=== PATIENT | female | born 1945 | race Caucasian/White ===

== ENCOUNTER 2022-07-14 12:27 | Emergency (ER) | payer OTHER ==
--- OUTSIDE RECORDS SUMMARY | 2022-07-14 12:31 | XMS REPORT | Continuity of Care Document ---
:1945 Author Organization [facility] t Address [address] [place] [address] Care Team Providers Name Role Phone PHYSICIAN, OUTSIDE Primary Care Physician Unavailable DENICE GRANADOS Attending Clinician Unavailable ROMÁN BOWLES Attending Clinician Unavailable Denice Granados MD Attending Clinician Doctor Unassigned, [place] Attending Clinician Unavailable Román Bowles MD Attending Clinician RADIOLOGY Attending Clinician Unavailable Radiology Attending Clinician Unavailable Only, Adc Test Attending Clinician Unavailable Vahid Mclain MD Attending Clinician VAHID MCLAIN Attending Clinician Unavailable Sherrie Plaza RN Attending Clinician Unavailable SHERLY CHAPMAN Attending Clinician Unavailable CIARA CHAPIN Attending Clinician Unavailable Pob, Adc Lab Main Attending Clinician Unavailable Meredith Kaur MD Attending Clinician PRATEEK BURR Attending Clinician Unavailable Darrius Boyer MD Attending Clinician [place] Admitting Clinician Unavailable Payers Payer Name Policy Type Policy Number Effective Date Expiration Date Lanie blount QUETA/[facility] MED [id number] 2021 ADVANTAGE CHOICE 00:00:00 PPO [facility] MEDICARE [id number] 2018 ADVANTAGE 00:00:00 Problems Condition Condition Condition Status Onset Resolution Last Treating Co mments Source Name Details Category Date Date Treatment Clinician Date No known No known Disease Unive rs active active ity of problems problems [place] [facility] Allergies, Adverse Reactions, Alerts Allergy Allergy Status Severity Reaction(s) Onset Inactive Treating Comm ents Source Name Type Date Date Clinician Iodine Propensi Active Hives Univers And ty to 8-08 ity of Iodide adverse 00:00: [place] Containi reaction 00 Medica l ng s Branch Products IODINE Drug Active Hives Univers AND Class 8-08 ity of IODIDE 00:00: [place] CONTAINI 00 Medical NG Branch PRODUCTS Family History Family Member Diagnosis Comments Start Date Stop Date Source Natural father [facility] Natural mother [facility] Social History Social Habit Start Date Stop Date Quantity Comments Source History SDOH [facility] History SDOH [facility] Drinks Exposure to 2022-07-02 2022-07-12 Not sure University of SARS-CoV-2 00:00:00 09:05:00 [place] [facility] (event) [facility] Tobacco use and 2021-02-16 2021-02-16 Smokeless tobacco Me [facility]odist exposure 00:00:00 00:00:00 non-user Hospital Alcohol intake 2021-02-16 2021-02-16 Lifetime [facility] 00:00:00 00:00:00 non-drinker Hospital (finding) History SDOH 2021-02-16 2021-02-16 1 [facility] Frequency 00:00:00 00:00:00 Hospita l Sex [birth year] [facility] 00:00:[facility]:00:00 Hospital Smoking Status Start Date Stop Date Source Tobacco smoking consumption [facility] unknown Branch Never smoked tobacco [facility] Medications Ordered Filled Start Stop Current Ordering Indication Dosage Frequency Signature Comments Components Source Medication Medication Date Date Medication? Clinician (SIG) Name Name metoprolol Yes 25mg Take 25 mg U nivers succinate 1-10 by mouth ity of XL 25 mg 24 09[place] 43 morning. Med[place] Branch metoprolol Yes 25mg Take 25 mg U nivers succinate 1-10 by mouth ity of XL 25 mg 24 09:20[place] 43 morning. [place] Branch pravastatin Yes 40mg QD Take 40 mg [facility] (PRAVACHOL) 8-[address] 40 mg 10:55: daily. Hospita tablet 49 l MAGNESIUM 202-0 Yes 625mg QD Take 625 Met [facility] CITRATE 8-[address] ORAL 10:54: mouth Hospita 09 daily. l omega-3 202-0 Yes Take by [facility] fatty 8-[address] acids/fish 10:54: Fish oil- Ho spita oil (FISH 09 1,000 mg, l OIL OMEGA omega 3-6-9 ORAL) 3-300 mg zinc 50 mg 2020-0 Yes 1{tbl} QD Take 1 Met [facility] tablet 8-[address] 10:54: mouth Hospita 09 daily. l ascorbic 202-0 Yes 1000mg QD Take 1,000 M ethodi acid, 8-[address] vitamin C, 10:54: mouth Hospit a (vitamin C) 09 daily. l 1000 MG tablet calcium 2020-0 Yes Take by [facility] carbonate 8-[address] (CALCIUM 10:50: Hospita 600 ORAL) 48 l cholecalcif 2020-0 Yes 3250U QD Take 3,250 [facility] loren, 8-17 Units by vitamin D3, 10:50: mouth Hospi ta (Vitamin 48 daily. l D3) 25 mcg (1,000 unit) capsule diclofenac Yes [id number] 75mg Take 1 U nivers 75 mg EC 8-08 tablet by ity of tablet 00:00: mouth (two) Medical times Branch daily with meals. diclofenac Yes [id number] 75mg Take 1 U nivers 75 mg EC 8-08 tablet by ity of tablet 00:00: mouth (two) Medical times Branch daily with meals. diclofenac 0 Yes [id number] 75mg Take 1 U nivers 75 mg EC 8-08 tablet by ity of tablet 00:00: mouth (two) Medical times Branch daily with meals. diclofenac 2018-0 Yes [id number] 75mg Take 1 U nivers 75 mg EC 8-08 tablet by ity of tablet 00:00: mouth (two) Medical times Branch daily with meals. diclofenac 2019-0 Yes [id number] 75mg Take 1 U nivers 75 mg EC 8-08 tablet by ity of tablet 00:00: mouth (two) Medical times Branch daily with meals. diclofenac 2019-0 Yes [id number] 75mg Take 1 U nivers 75 mg EC 8-08 tablet by ity of tablet 00:00: mouth (two) Medical times Branch daily with meals. diclofenac 2019-0 Yes [id number] 75mg Take 1 U nivers 75 mg EC 8-08 tablet by ity of tablet 00:00: mouth (two) Medical times Branch daily with meals. diclofenac 2019-0 Yes [id number] 75mg Take 1 U nivers 75 mg EC 8-08 tablet by ity of tablet 00:00: mouth (two) Medical times Branch daily with meals. diclofenac 2019-0 Yes [id number] 75mg Take 1 U nivers 75 mg EC 8-08 tablet by ity of tablet 00:00: mouth (two) Medical times Branch daily with meals. diclofenac 2019-0 Yes [id number] 75mg Take 1 U nivers 75 mg EC 8-08 tablet by ity of tablet 00:00: mouth (two) Medical times Branch daily with meals. diclofenac 2019-0 Yes [id number] 75mg Take 1 U nivers 75 mg EC 8-08 tablet by ity of tablet 00:00: mouth (two) Medical times Branch daily with meals. diclofenac 2019-0 Yes [id number] 75mg Take 1 U nivers 75 mg EC 8-08 tablet by ity of tablet 00:00: mouth [place] (two) Medical times Branch daily with meals. diclofenac 2019-0 Yes [id number] 75mg Take 1 U nivers 75 mg EC 8-08 tablet by ity of tablet 00:00: mouth [place] (two) Medical times Branch daily with meals. diclofenac 2019-0 Yes [id number] 75mg Take 1 U nivers 75 mg EC 8-08 tablet by ity of tablet 00:00: mouth (two) Medical times Branch daily with meals. diclofenac 2019-0 Yes [id number] 75mg Take 1 U nivers 75 mg EC 8-08 tablet by ity of tablet 00:00: mouth [place] (two) Medical times Branch daily with meals. diclofenac 2019-0 Yes [id number] 75mg Take 1 U nivers 75 mg EC 8-08 tablet by ity of tablet 00:00: mouth [place] (two) Medical times Branch daily with meals. diclofenac 2019-0 Yes [id number] 75mg Take 1 U nivers 75 mg EC 8-08 tablet by ity of tablet 00:00: mouth 2 [place] (two) Medical times Branch daily with meals. diclofenac 2019-0 Yes [id number] 75mg Take 1 U nivers 75 mg EC 8-08 tablet by ity of tablet 00:00: mouth 2 [place] (two) Medical times Branch daily with meals. diclofenac 2019-0 Yes [id number] 75mg Take 1 U nivers 75 mg EC 8-08 tablet by ity of tablet 00:00: mouth 2 [place] (two) Medical times Branch daily with meals. diclofenac 2019-0 Yes [id number] 75mg Take 1 U nivers 75 mg EC 8-08 tablet by ity of tablet 00:00: mouth 2 [place] (two) Medical times Branch daily with meals. diclofenac 2019-0 Yes [id number] 75mg Take 1 U nivers 75 mg EC 8-08 tablet by ity of tablet 00:00: mouth 2 [place] (two) Medical times Branch daily with meals. pravastatin 2019-0 Yes Univer s 40 mg 5-19 ity of tablet 00:00: [address] pravastatin 2019-0 Yes Univer s 40 mg 5-19 ity of tablet 00:00: [address] pravastatin 2019-0 Yes Univer s 40 mg 5-19 ity of tablet 00:00: [address] pravastatin 2019-0 Yes Univer s 40 mg 5-19 ity of tablet 00:00: [address] pravastatin 2019-0 Yes Univer s 40 mg 5-19 ity of tablet 00:00: [address] pravastatin 2019-0 Yes Univer s 40 mg 5-19 ity of tablet 00:00: [address] pravastatin 2019-0 Yes Univer s 40 mg 5-19 ity of tablet 00:00: [address] pravastatin 2019-0 Yes Univer s 40 mg 5-19 ity of tablet 00:00: [address] pravastatin 2019-0 Yes Univer s 40 mg 5-19 ity of tablet 00:00: [address] pravastatin 2019-0 Yes Univer s 40 mg 5-19 ity of tablet 00:00: [address] pravastatin 2019-0 Yes Univer s 40 mg 5-19 ity of tablet 00:00: [place] 00 [facility] pravastatin 2019-0 Yes Univer s 40 mg 5-19 ity of tablet 00:00: [place] [address] Medical Branch pravastatin 2019-0 Yes Univer s 40 mg 5-19 ity of tablet 00:00: [place] [address] Medical Branch pravastatin 2019-0 Yes Univer s 40 mg 5-19 ity of tablet 00:00: [place] [address] Medical Branch pravastatin 2019-0 Yes Univer s 40 mg 5-19 ity of tablet 00:00: [place] [address] Medical Branch pravastatin 2019-0 Yes Univer s 40 mg 5-19 ity of tablet 00:00: [place] [address] Medical Branch pravastatin 2019-0 Yes Univer s 40 mg 5-19 ity of tablet 00:00: [place] [address] Medical Branch pravastatin 2019-0 Yes Univer s 40 mg 5-19 ity of tablet 00:00: [place] [address] Medical Branch pravastatin 2019-0 Yes Univer s 40 mg 5-19 ity of tablet 00:00: [address] Branch pravastatin 2019-0 Yes Univer s 40 mg 5-19 ity of tablet 00:00: [address] Branch pravastatin 2019-0 Yes Univer s 40 mg 5-19 ity of tablet 00:00: [address] Branch Immunizations Ordered Filled Immunization Date Status Comments [facility] e Immunization Name Name SARS-COV-2 COVID-19 2020-08-08 Completed Unive rsity of MODERNA 12+ YRS 00:00:00 [facility] VACCINE Branch SARS-COV-2 COVID-19 2020-08-08 Completed Unive rsity of MODERNA 12+ YRS 00:00:00 [facility] ical VACCINE Branch SARS-COV-2 COVID-19 2020-08-08 Completed Unive rsity of MODERNA 12+ YRS 00:00:00 [facility] ical VACCINE Branch SARS-COV-2 COVID-19 2020-08-08 Completed Unive rsity of MODERNA 12+ YRS 00:00:00 [facility] ical VACCINE Branch SARS-COV-2 COVID-19 2020-08-08 Completed Unive rsity of MODERNA 12+ YRS 00:00:00 [facility] [place] [facility] VACCINE Branch SARS-COV-2 COVID-19 2020-08-08 Completed Unive rsity of MODERNA 12+ YRS 00:00:00 [place] [facility] ical VACCINE Branch SARS-COV-2 COVID-19 2020-08-08 Completed Unive rsity of MODERNA 12+ YRS 00:00:00 [place] [facility] ical VACCINE Branch SARS-COV-2 COVID-19 2020-08-08 Completed Unive rsity of MODERNA 12+ YRS 00:00:00 [place] [facility] ical VACCINE Branch SARS-COV-2 COVID-19 2020-08-08 Completed Unive rsity of MODERNA VACCINE 00:00:00 [place] Med ical Branch SARS-COV-2 COVID-19 2020-08-08 Completed Unive rsity of MODERNA VACCINE 00:00:00 [place] [facility] ical Branch SARS-COV-2 COVID-19 2020-08-08 Completed Unive rsity of MODERNA VACCINE 00:00:00 [place] [facility] ical Branch SARS-COV-2 COVID-19 2020-07-11 Completed Unive rsity of MODERNA 12+ YRS 00:00:00 [place] [facility] ical VACCINE Branch SARS-COV-2 COVID-19 2020-07-11 Completed Unive rsity of MODERNA 12+ YRS 00:00:00 [place] [facility] ical VACCINE Branch SARS-COV-2 COVID-19 2020-07-11 Completed Unive rsity of MODERNA 12+ YRS 00:00:00 [place] [facility] ical VACCINE Branch SARS-COV-2 COVID-19 2020-07-11 Completed Unive rsity of MODERNA 12+ YRS 00:00:00 [place] [facility] ical VACCINE Branch SARS-COV-2 COVID-19 2020-07-11 Completed Unive rsity of MODERNA 12+ YRS 00:00:00 [place] [facility] ical VACCINE Branch SARS-COV-2 COVID-19 2020-07-11 Completed Unive rsity of MODERNA 12+ YRS 00:00:00 [place] [facility] ical VACCINE Branch SARS-COV-2 COVID-19 2020-07-11 Completed Unive rsity of MODERNA 12+ YRS 00:00:00 [place] [facility] ical VACCINE Branch SARS-COV-2 COVID-19 2020-07-11 Completed Unive rsity of MODERNA 12+ YRS 00:00:00 [place] [facility] ical VACCINE Branch SARS-COV-2 COVID-19 2020-07-11 Completed Unive rsity of MODERNA VACCINE 00:00:00 [place] [facility] ical Branch SARS-COV-2 COVID-19 2020-07-11 Completed Unive rsity of MODERNA VACCINE 00:00:00 [facility] Branch SARS-COV-2 COVID-19 2020-07-11 Completed Unive rsity of MODERNA VACCINE 00:00:00 [facility] Vital Signs Vital Name Observation Time Observation Value Comments Source Systolic blood 2022-07-12 15:28:00 139 mm[Hg] Univer sity of pressure [place] [facility] Diastolic blood 2022-07-12 15:28:00 66 mm[Hg] Unive rsity of pressure [facility] Branch Heart rate 2022-07-12 15:28:00 53 /min [facility] ty [facility] [place] [facility] Body temperature 2022-07-12 15:28:00 36.22 Nimo Univ ersity of [facility] Branch Body height 2022-07-12 15:28:00 172.7 cm Universi ty of [place] [facility] [place] Body weight 2022-07-12 15:28:00 58.423 kg Universi ty of [place] [facility] BMI 2022-07-12 15:28:00 19.58 kg/m2 [facility]i ty [facility] [place] [facility] Oxygen saturation in 2022-07-12 15:28:00 98 /min University of Arterial blood by [place] [facility] merlyn Pulse oximetry Branch Systolic blood 2022-04-29 14:00:00 133 mm[Hg] Univer sity of pressure [facility] Diastolic blood 2022-04-29 14:00:00 76 mm[Hg] Unive rsity of pressure [facility] Heart rate 2022-04-29 14:00:00 52 /min Universi ty of [place] [facility] Body weight 2022-04-29 14:00:00 58.287 kg Universi ty of [place] [facility] BMI 2022-04-29 14:00:00 19.54 kg/m2 Universi ty of [place] [facility] Oxygen saturation in 2022-04-29 14:00:00 97 /min University of Arterial blood by [facility] merlyn Pulse oximetry Branch Systolic blood 2019-03-20 20:31:00 120 mm[Hg] Univer sity of pressure [facility] Diastolic blood 2019-03-20 20:31:00 65 mm[Hg] Unive rsity of pressure [facility] Body height 2019-03-20 20:31:00 172.7 cm Universi ty of [place] [facility] Body weight 2019-03-20 20:31:00 56.7 kg Universi ty of [place] [facility] BMI 2019-03-20 20:31:00 19.01 kg/m2 [facility] [place] [facility] Systolic blood 2019-03-20 20:31:00 120 mm[Hg] Univer sity of pressure [facility] Diastolic blood 2019-03-20 20:31:00 65 mm[Hg] Unive rsity of [facility] Medical Branch Body height 2019-03-20 20:31:00 172.7 cm Universi ty of [place] [facility] Body weight 2019-03-20 20:31:00 56.7 kg Universi ty of [place] [facility] BMI 2019-03-20 20:31:00 19.01 kg/m2 Universi ty of [place] [facility] Body height 2019-02-07 13:00:00 172.7 cm Universi ty of [place] [facility] Body weight 2019-02-07 13:00:00 56.7 kg Universi ty of [place] [facility] BMI 2019-02-07 13:00:00 19.01 kg/m2 [facility] [place] [facility] Systolic blood 2019-02-07 13:00:00 122 mm[Hg] Univer sity of [facility] Medical Branch Diastolic blood 2019-02-07 13:00:00 65 mm[Hg] Unive rsity of [facility] Procedures Procedure Date / Time Performed Performing Clinician Sour e EXTERNAL PROVIDER - 2022-05-31 06:01:00 Doctor Unassigned, No Un iversity [facility] CARDIOLOGY Name Medical Branch CORTISOL, P.M.-Q 2022-05-02 21:12:00 Román Bowles [facility] DEXA AXIAL (HIP AND 2022-04-04 13:30:55 [facility] SPINE) Medical Branch CONSENT/REFUSAL FOR 2022-04-04 12:48:22 Doctor Unassigned, [facility] AND Name Medical Branch TREATMENT ASSIGNMENT OF BENEFITS 2022-04-04 12:48:01 Doctor Unassigned, No [facility] Medical Branch ASSIGNMENT OF BENEFITS 2021-03-30 18:32:59 Doctor Unassigned, No [facility] Branch ASSIGNMENT OF BENEFITS 2020-03-03 20:31:11 Doctor Unassigned, No [facility] ASSIGNMENT OF BENEFITS 2019-03-20 21:02:10 Doctor Unassigned, No [facility] Plan of Care Planned Activity Planned Date Details Comments Source Future Scheduled 2022-06-15 Hepatitis C screening [facility] Test 23:35:50 (procedure) [code = 785530872] Future Scheduled 2022-06-15 COLONOSCOPY SCREENING [facility] Test 23:35:50 [code = COLONOSCOPY SCREENING] Future Scheduled 2022-06-15 SHINGLES VACCINES (1 Met [facility] Test 23:35:50 of 2) [code = SHINGLES VACCINES (1 of 2)] Future Scheduled 2022-06-15 65+ PNEUMOCOCCAL [facility] Test 23:35:50 VACCINE (1 - PCV) [code = 65+ PNEUMOCOCCAL VACCINE (1 - PCV)] Future Scheduled 2022-06-15 COVID-19 VACCINE (3 - [facility] Test 23:35:50 Booster for Moderna series) [code = COVID-19 VACCINE (3 - Booster for Moderna series)] Future Scheduled 2022-06-15 INFLUENZA VACCINE [facility] Test 23:35:50 [code = INFLUENZA VACCINE] Encounters Start End Encounter Admission Attending Care Care Encounter Source Date/Time Date/Time Type Type Clinicians Facility Department ID 2023-05-05 2023-05-05 Outpatient R WILBUR [facility] [id number] Univers 09:30:00 09:30:00 ROMÁN fountain [facility] 2022-07-12 2022-07-12 Outpatient R DARWIN [facility] [id number] Univers 09:30:00 09:55:36 DENICE fountain [facility] 2022-07-12 2022-07-12 Office Darwin IACAREN [id number] Univers 09:30:00 09:55:36 Visit Denice [facility] 4.2.7.2.686 Bettye SANDRA [phone] Mo dical NAL 059 [facility] 2022-05-31 2022-05-31 Orders Doctor PATRICIO 1.2.840.114 [id number] Univers 00:00:00 00:00:00 Only Unassigned, PAVEL 350.1.13.10 ity of [place] [facility] 4.2.7.2.686 Josh as [id number] [address] 2022-05-03 2022-05-03 Telephone [facility] 1.2.840.114 [id number] Univers 00:00:00 00:00:00 Román Lechuga HEALTH 350.1.13.10 it y of [place] 4.2.7.2.686 Josh as SIDRA?BLEA [id number] [address] MEDICAL OFFICE [facility] 2022-05-02 2022-05-02 Orders SINTIA Bowles [id number] Univers 00:00:00 00:00:00 Only Román ZHAO 350.1.13.10 it y of [facility] 4.2.7.2.686 Josh as [id number] [address] 2022-04-29 2022-04-29 [facility] [id number] Univers 09:00:00 10:15:02 ROMÁN ity of [facility] 2022-04-29 2022-04-29 Office [facility] [id number] Univers 09:00:00 10:15:02 Visit Román Lechuga HEALTH 350.1.13.10 it y of [place] 4.2.7.2.686 Josh as SIDRA?BLEA [id number] [address] MEDICAL OFFICE [facility] 2022-04-04 2022-04-04 Outpatient R RADIOLOGY [facility] [id number] Univers 07:47:43 23:59:00 ity of [facility] 2022-04-04 2022-04-04 Hospital Radiology [facility] 1.2.840.114 [id number] Univers 07:47:43 23:59:00 Encounter [place] 350.1.13.10 ity of [place]7.[place] [id number] [address] 2021-09-20 2021-09-20 Travel 1.2.840.1 [id number] Methodi 00:00:00 00:00:[address] 3.430.2.7 0.2.7.3.698 Ho spita .[id number] 084.8 l .8 2021-03-30 2021-03-30 Laboratory Only, Adc Test [facility] 1.2.840. 114 [id number] Univers 13:36:50 13:51:50 Only Vahid Mclain 350.1.13.10 ity [facility] 4.2.7.2.686 [facility] [id number] [facility] 353 Branch 2021-03-30 2021-03-30 Outpatient Pato MCLAIN [facility] [id number] Univers 13:30:00 13:30:00 [facility] 2021-03-30 2021-03-30 Orders Doctor SINTIA 1.2.840.114 [id number] Univers 00:00:00 00:00:00 Only Unassigned, PAVEL 350.1.13.10 ity of [place] [facility] 4.2.7.2.686 Josh as [id number] [facility] 009 Branch 2021-03-30 2021-03-30 Telephone [place]rie Plaza 1.2.840.114 [id number] Univers 00:00:00 00:00:00 PAVEL 350.1.13.10 it y of [facility] 4.2.7.2.686 Josh as [id number] [facility] 019 Branch 2021-02-16 2021-02-16 Outpatient [facility] [id number] [place] 00:00:00 00:00:[address] 2020-08-08 2020-08-08 Outpatient Pato CHAPIN [facility] [id number] Univers 09:40:00 09:40:00 CIARA ity [facility] 2020-07-11 2020-07-11 Outpatient Pato CHAPIN [facility] [id number] Univers 09:50:00 09:50:00 CIARA ity [facility] 2020-03-03 2020-03-03 Spray Mixer Alex, Adc Lab Main [facility] 1.2.8 40.114 [id number] Univers 15:33:47 15:48:47 Visit Meredith Kaur [place] 350.1.1 3.10 ity of [place].2.[place] [id number] Me dical nal [address] [place] [address] 2020-03-03 2020-03-03 Outpatient R [facility] [id number] Univers 15:30:00 15:30:00 ity [facility] 2020-03-03 2020-03-03 Orders Doctor SINTIA 1.2.840.114 [id number] Univers 00:00:00 00:00:00 Only Unassigned, PAVEL 350.1.13.10 ity of [place] [facility] 4.2.7.2.686 Josh as [id number] [address] 2019-12-27 2019-12-27 Outpatient MDA MDA [id number] 00:00:00 23:59:00 Bill o n 2019-12-27 2019-12-27 [id number] Univers 15:00:00 15:00:00 [facility] 2019-12-06 2019-12-06 [id number] Univers 08:30:00 08:30:[address] [facility] 2019-03-20 2019-03-20 Office [facility] [id number] 15:27:09 15:42:09 Visit [facility] 350.1.13.10 Surgical 4.2.7.2.686 Specialti [id number] es [address] [place] [address] 2019-03-20 2019-03-20 Office [facility] [id number] Univers 15:27:09 15:42:09 Visit [facility] 350.1.13.10 it y of Surgical 4.2.7.2.686 Josh as Specialti [phone] Me dical es [address] [facility] 2019-03-20 2019-03-20 Orders Doctor PATRICIO 1.2.840.114 [id number] 00:00:00 00:00:00 Only Unassigned, PAVEL 350.1.13.10 [facility] 4.2.7.2.686 [id number] 2019-03-20 2019-03-20 Orders Doctor SINTIA 1.2.840.114 [id number] [facility] 00:00:00 00:00:00 Only Unassigned, PAVEL 350.1.13.10 ity of [place] [facility] 4.2.7.2.686 Josh as [id number] [address] 2019-02-07 2019-02-07 [facility] 1.2.840.114 [id number] [facility] 08:06:49 23:59:00 Encounter [place] 350.1.13.10 ity of Surgical 4.2.7.2.686 Josh as Specialti [id number] Mo dical es 809 [facility] 2019-02-07 2019-02-07 Office [facility] [id number] [facility] 07:58:26 08:35:49 Visit [place] 350.1.13.10 it y of Surgical 4.2.7.2.686 Josh as Specialti [phone] Mo dical es 198 [facility] 2019-02-07 2019-02-07 Telephone [facility] 1.2.840.114 [id number] [facility] 00:00:00 00:00:00 [place] 350.1.13.10 it y of Surgical 4.2.7.2.686 Josh as Specialti [id number] Mo dical es 198 [facility] Results Test Description Test Time Test Comments Results Result Comments Source CORTISOL, P.M.-Q 2022-05-03 13:00:00 Test Item Value Reference Range Interpretation Comme nts CORTISOL, P.M.-Q (test mcg/dL Refer ence Range4 p.m. code = 9812-9) (3-5 p.m.) Sp ecimen: 3.0-17.0 CONCEPCIÓN (test code = CONCEPCIÓN) PERFORMED BY [facility] [place]; [address] [facility] [place] [address]; BLAYNE AREVALO MD [facility]
--- NOTE | 2022-07-14 13:44 | RAD REPORT ---
EXAM DESCRIPTION: RAD - Hip Right 2 View - 07/14/2022 1:30 pm CLINICAL HISTORY: PAIN COMPARISON: No comparisons FINDINGS: No acute fracture. No malalignment. No significant focal degenerative changes. IMPRESSION: No acute osseous abnormality involving the right hip.
--- NOTE | 2022-07-14 13:44 | RAD REPORT ---
EXAM DESCRIPTION: RAD - Pelvis - 07/14/2022 1:30 pm CLINICAL HISTORY: PAIN COMPARISON: TRANSVAGINAL STUDY PROBE dated 12/17/2014 FINDINGS/IMPRESSION: No acute fracture. No malalignment. No significant focal degenerative changes.
--- NOTE | 2022-07-14 14:31 | ER ---
Nurse's Notes [facility] Name: Grace Cabrera Age: 76 yrs Sex: Female : 1945 Arrival Date: 07/14/2022 Time: 12:29 Bed 12 Private MD: Catalina Reagan C Diagnosis: Pain in right hip Presentation: 07/14 12:33 Chief complaint: Patient states: "I was in the house and went to sit in the chair and mb9 stepped sideways to sit in it and felt a pain that shoot across in my right hip". Coronavirus screen: Vaccine status: Patient reports receiving the 2nd dose of the covid vaccine. Ebola Screen: No symptoms or risks identified at this time. Initial Sepsis Screen: Does the patient meet any 2 criteria? No. Patient's initial sepsis screen is negative. Does the patient have a suspected source of infection? No. Patient's initial sepsis screen is negative. Risk Assessment: Do you want to hurt yourself or someone else? Patient reports no desire to harm self or others. Onset of symptoms was July 14, 2022. 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 - Social history:: Smoking status: Patient denies any tobacco usage or history of. Screenin:53 [facility] ED Fall Risk Assessment (Adult) History of falling in the last 3 months, mb9 including since admission No falls in past 3 months (0 pts) Confusion or Disorientation No (0 pts) Intoxicated or Sedated No (0 pts) Impaired Gait Yes (1 pt) Mobility Assist Device Used No (0 pt) Altered Elimination No (0 pt) Score/Fall Risk Level 0 - 2 = Low Risk Oriented to surroundings, Maintained a safe environment, Educated pt \\T\\ family on fall prevention, incl call for assistance when getting out of bed. Abuse screen: Denies threats or abuse. Nutritional screening: No deficits noted. Tuberculosis screening: No symptoms or risk factors identified. Assessment: 12:51 General: Appears in no apparent distress. comfortable, Behavior is calm, cooperative, mb9 appropriate for age. Pain: Complains of pain in right hip Pain does not radiate. Pain currently is 8 out of 10 on a pain scale. Quality of pain is described as shooting, Pain began suddenly, Is intermittent, Aggravated by increased activity, repositioning, weight bearing. Neuro: Chavez Agitation-Sedation Scale (RASS): 0 - Alert and Calm Level of Consciousness is awake, alert, obeys commands, Oriented to person, place, time, situation, Appropriate for age. Cardiovascular: Capillary refill < 3 seconds is brisk Patient's skin is warm and dry. Respiratory: Airway is patent Respiratory effort is even, unlabored, Respiratory pattern is regular, symmetrical. GI: Abdomen is flat, non-distended. : No signs and/or symptoms were reported regarding the genitourinary system. EENT: No signs and/or symptoms were reported regarding the EENT system. Derm: Skin is pink, warm \\T\\ dry. Musculoskeletal: Range of motion: limited in right hip pt able to ambulate without assistance. 13:55 Reassessment: No changes from previously documented assessment. Patient and/or family mb9 updated on plan of care and expected duration. Pain level reassessed. Patient is alert, oriented x 3, equal unlabored respirations, skin warm/dry/pink. 14:43 Reassessment: No changes from previously documented assessment. Patient and/or family mb9 updated on plan of care and expected duration. Pain level reassessed. Patient is alert, oriented x 3, equal unlabored respirations, skin warm/dry/pink. Vital Signs: 12:33 BP 124 / 60; Pulse 61; Resp 16; Temp 98.6(O); Pulse Ox 100% ; Weight 58.06 kg (R); mb9 Height 5 ft. 8 in. (172.72 cm) (R); Pain 8/10; 14:43 BP 121 / 59; Pulse 62; Resp 14; Pulse Ox 100% on R/A; mb9 12:33 Body Mass Index 19.46 (58.06 kg, 172.72 cm) mb9 ED Course: 12:29 Patient arrived in ED. am2 12:30 Catalina Reagan MD is Private Physician. am2 12:35 Triage completed. mb9 12:37 Arm band placed on. mb9 12:38 Dorina Copeland, RN is Primary Nurse. mb9 12:40 Prisca Morocho FNP-C is [facility]. kb 12:40 Branden Sesay MD is Attending Physician. kb 12:53 Placed in gown. Bed in low position. Call light in reach. Side rails up X 1. Client mb9 placed on continuous cardiac and pulse oximetry monitoring. NIBP monitoring applied. Door closed. Noise minimized. Warm blanket given. 13:32 Hip Right 2 View XRAY In Process Unspecified. EDMS 13:32 Pelvis XRAY In Process Unspecified. EDMS 14:48 No provider procedures requiring assistance completed. Patient did not have IV access mb9 during this emergency room visit. Administered Medications: No medications were administered Medication: 12:53 VIS not applicable for this client. mb9 Outcome: 14:31 Discharge ordered by . kb 14:48 Discharged to home via wheelchair. mb9 14:48 Condition: stable 14:48 Discharge instructions given to patient, Instructed on discharge instructions, follow up and referral plans. Demonstrated understanding of instructions, follow-up care, medications, Prescriptions given X 2. 14:49 Patient left the ED. mb9 Signatures: Dispatcher [employer] EDMS Prisca Morocho FNP-C FNP-Armida Caraballo [facility] Dorina Copeland, RN RN mb9
--- NOTE | 2022-07-14 14:31 | EDPHYS ---
Physician Documentation [facility] Name: Grace Cabrera Age: 76 yrs Sex: Female : 1945 Arrival Date: 07/14/2022 Time: 12:29 Bed 12 Private MD: Catalina Reagan C ED Physician Branden Sesay HPI: 07/14 14:30 This 76 yrs old Female presents to ER via Wheelchair with complaints of Hip Pain. kb 14:30 The patient or guardian reports pain. that occurred at home, sustained from sitting kb down, There is no obvious deformity, The patient is able to self ambulate. The patient is able to bear their full body weight. The complaints affect the right hip. Onset: The symptoms/episode began/occurred just prior to arrival. Modifying factors: The symptoms are alleviated by nothing, the symptoms are aggravated by any movement. Associated signs and symptoms: Loss of consciousness: the patient experienced no loss of consciousness, Pertinent positives: None. Severity of symptoms: At their worst the symptoms were moderate, in the emergency department the symptoms are unchanged. The patient has not experienced similar symptoms in the past. The patient has not recently seen a physician. 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 - Social history:: Smoking status: Patient denies any tobacco usage or history of. ROS: 14:28 Constitutional: Negative for fever, chills, and weight loss. kb 14:28 MS/extremity: Positive for pain, of the right hip. 14:28 All other systems are negative. Exam: 14:28 Constitutional: This is a well developed, well nourished patient who is awake, alert, kb and in no acute distress. Head/Face: Normocephalic, atraumatic. ENT: Moist Mucous membranes Cardiovascular: Regular rate and rhythm with a normal S1 and S2. No gallops, murmurs, or rubs. No pulse deficits. Respiratory: Respirations even and unlabored. No increased work of breathing. Talking in full sentences Abdomen/GI: Soft, non-tender. No distention Skin: Warm, dry with normal turgor. Normal color. Neuro: Awake and alert, GCS 15, oriented to person, place, time, and situation. Moves all extremities. Normal gait. Psych: Awake, alert, with orientation to person, place and time. Behavior, mood, and affect are within normal limits. 14:28 Musculoskeletal/extremity: Extremities: grossly normal except: noted in the right hip: pain, ROM: intact in all extremities, Circulation is intact in all extremities. Sensation intact. Weight bearing: able to fully bear weight. Vital Signs: 12:33 BP 124 / 60; Pulse 61; Resp 16; Temp 98.6(O); Pulse Ox 100% ; Weight 58.06 kg (R); mb9 Height 5 ft. 8 in. (172.72 cm) (R); Pain 8/10; 14:43 BP 121 / 59; Pulse 62; Resp 14; Pulse Ox 100% on R/A; mb9 12:33 Body Mass Index 19.46 (58.06 kg, 172.72 cm) mb9 MDM: 12:40 Patient medically screened. kb 14:30 Differential diagnosis: hip fracture, intertrochanteric fracture, strain, sciatica. kb Data reviewed: vital signs, nurses notes. Test considered but Not performed: Other Details CT considered, but pt has had no injury and is ambulatory. Counseling: I had a detailed discussion with the patient and/or guardian regarding: the historical points, exam findings, and any diagnostic results supporting the discharge/admit diagnosis, radiology results, the need for outpatient follow up, a family practitioner, a orthopedic surgeon, to return to the emergency department if symptoms worsen or persist or if there are any questions or concerns that arise at home. 07/14 12:41 Order name: Hip Right 2 View XRAY; Complete Time: 13:48 kb 07/14 12:51 Order name: Pelvis XRAY; Complete Time: 13:48 kb Administered Medications: No medications were administered Disposition: 07/15 13:40 Co-signature as Attending Physician, Branden Sesay MD I agree with the assessment and dimple plan of care. Disposition Summary: 07/14/22 14:31 Discharge Ordered Location: Home kb Condition: Stable kb Diagnosis - Pain in right hip kb Followup: kb - With: Emergency Department - When: As needed - Reason: Worsening of condition Followup: kb - With: Private Physician - When: 2 - 3 days - Reason: Recheck today's complaints, Continuance of care, Re-evaluation by your physician Discharge Instructions: - Discharge Summary Sheet kb - Musculoskeletal Pain kb Forms: - Medication Reconciliation Form kb - Thank You Letter kb - Antibiotic Education kb - Prescription Opioid Use kb Prescriptions: - Diclofenac Sodium 75 mg Oral tablet,delayed release (DR/EC) - take 1 tablet by ORAL route 2 times per day As needed; 20 tablet; Refills: 0, kb Product Selection Permitted - orphenadrine citrate 100 mg Oral Tablet Sustained Release - take 1 tablet by ORAL route 2 times per day As needed; 20 tablet; Refills: 0, kb Product Selection Permitted Signatures: Dispatcher [employer] EDPrisca Jonas, RESEARCH PROGRAM INTERN-C RESEARCH PROGRAM INTERN-Branden Velarde MD MD cha Breneman, Mary Beth RN RN mb9
[2022-07-14 15:10] VITALS: TEMP 98.6; O2SAT 100
[2022-07-14 15:12] VITALS: BP 121/59
== END 2022-07-14 14:49 | disposition home or self-care (01) ==
LOC: ER 12:27
DX: M25.551 Pain in right hip (principal); Z91.048 Other nonmedicinal substance allergy status
CPT/HCPCS: 72170; 99283